=== PATIENT | male | born 1955 | race Caucasian/White ===

== ENCOUNTER → 2018-04-04 10:33 | Outpatient (CLI) | payer OTHER, SELFPAY ==
--- NOTE | 2018-04-04 | DI.CT.S_ITS ---
PROCEDURE: CT PEL WO CON INDICATIONS: LEFT LOWER QUADRANT PAIN TECHNIQUE: After the administration of oral contrast, 5 mm thick sections acquired from the iliac crests to the symphysis. 5 mm coronal and sagittal reformats were then performed. For radiation dose reduction, the following was used: automated exposure control, adjustment of mA and/or kV according to patient size. COMPARISON: [facility], CR, HIP 2V LEFT, 02/12/2014, 14:20. FINDINGS: Image quality: Excellent. Peritoneum and bowel: Bowel loops demonstrate normal wall thickness and caliber. No free fluid or air. Genitourinary: Bladder wall thickness is normal. Nodes and vessels: No iliac, pelvic, or inguinal adenopathy by size criteria. Iliac vessels demonstrate normal size. Bones: No suspicious bony lesions. Pelvic ring and hip joints appear intact. Miscellaneous: No inguinal hernias. IMPRESSION: No abnormality found, source of left lower quadrant pain/groin pain on the left is not identified. The study was performed during Valsalva maneuver and no internal or other pelvic herniation is identified. Dictated by: Dimitri Claire M.D. on 04/04/2018 at 11:56 Approved by: Dimitri Claire M.D. on 04/04/2018 at 11:58
== END ==
PROVIDERS: Family Provider Family Medicine Geriatric Medicine; PCP Family Medicine Geriatric Medicine; Visit Provider Specialist
DX: R10.32 Left lower quadrant pain (principal)
CPT/HCPCS: 72192